=== PATIENT | female | born 1980 ===

== ENCOUNTER 2017-08-31 08:53 | Emergency (ER) | payer OTHER ==
--- NOTE | 2017-08-31 09:57 | ED PDOC ---
HPI: Abdomen Time Seen by Provider: 08/31/17 09:24 Chief Complaint (Nursing): GI Problem Chief Complaint (Provider): GI problem History Per: Patient, Family History/Exam Limitations: no limitations Past Medical History Vital Signs: Last Vital Signs Temp 98.0 F 08/31/17 09:09 Pulse 100 H 08/31/17 09:09 Resp 18 08/31/17 09:09 BP 123/63 08/31/17 09:09 Pulse Ox 99 08/31/17 09:09 - Allergies Allergies/Adverse Reactions: Allergies Allergy/AdvReac Type Severity Reaction Status Date / Time No Known Allergies Allergy Verified 08/31/17 09:09 - ECG O2 Sat by Pulse Oximetry: 99 Disposition - Disposition
[2017-08-31 15:28] VITALS: BP 111/74; PULSE 91; RESP 16; TEMP 98.6; O2SAT 96
--- NOTE | 2017-08-31 17:11 | OBHP ---
Datetime: 08/31/2017 10:15 IP Adm Impression: , intrauterine IP Admit Plan: Discharge home Admit Comment, IP Provider: 36 yo ega 30.2 with puja 10/15/2017 based on first us on 05/08/2017 presents with n/v. N/V began this morning at 06:00 with v x3; last episode at07:30. Denies hematemes is; Shares that all 3 children presented with similar symptoms the evening before. Denies fever. +: F M -: vb, ctx, lof, CP/SOB pnc: joaquín ricardo pobhx: x3 ft uncomplicated 2004, 2006, 2010 gyne hx: denies hx of sti; pap neg med hx: shingles eruption at L shoulder x 2 weeks; her pnc recommended against abx; currently on C alabri(?) lotion; pt is varicella zoster immune based on reports. Anemia fhx; htn surg: none soc: denies smoking, alcohol, illicit drugs rx: vit c, FeSO4, pnv nkda PE: General: AAOX3 Cardiac: s1s2 no murmur lungs: clear bilaterally, no wheezing abdo: gravid, non tender to palpation, active bowel sounds Calf tenderness: negative CVT: neg No pitting edema 36 yo IUP 30.2 -Symptoms for vomiting has spontaneously resolved since 07:30 (3 hrs preceeding). -Pt educated on concerns for varicella zoster eruption such as: careful covering, using gloves, wa shing hands and not allowing others, especially children to come in close contact. -ANGELO precaution: vb, ctx, lof, decreased fm Case dw Dr. Shamika Marquis MD [email or web address] Seen and examined with the resident and I agree with the above. Pelvic Type - PN: Not Done Extremities - PN: Normal Abdomen - PN: Normal Back - PN: Normal Breast - PN: Not Done Lungs - PN: Normal Heart - PN: Normal Thyroid - PN: Not Done Neurologic - PN: Normal HEENT - PN: Normal General - PN: Normal FHR - Baseline A Provider: 140 EGA AdmitDate IP: 30.2 Vital Signs Provider: Reviewed; Within Normal Limits IP Chief Complaint: Illness; Maternal discomfort NICHD Variability Prov Fetus A: Moderate 6-25bpm NICHD Accel Fetus A IP Provider: [id number] FHR Category Provider Fetus A: Category I NICHD Decel Fetus A IP Provider: None Genitourinary Exam: Normal DTRs - PN: Not Done
== END 2017-08-31 10:50 | disposition home or self-care (01) ==
LOC: H.EROB2 08:53
DX: O21.0 Mild hyperemesis gravidarum (principal); Z3A.30 30 weeks gestation of pregnancy